=== PATIENT | female | born 1975 | race African-American/Black ===

== ENCOUNTER 2020-07-07 14:32 | Emergency (ER) | payer BC ==
[~2020-07-07] VITALS: Ht 167.6 cm; Wt 108.9 kg
[2020-07-07 14:38] VITALS: BP 177/100
== END 2020-07-07 15:40 | disposition home or self-care (01) ==
LOC: ER 14:32
DX: S61.412A Laceration without foreign body of left hand, initial encounter (principal); W25.XXXA Contact with sharp glass, initial encounter; Y93.89 Activity, other specified; Y92.89 Other specified places as the place of occurrence of the external cause; Y99.9 Unspecified external cause status